=== PATIENT | female | born 1965 | race Caucasian/White ===

== ENCOUNTER 2021-05-09 18:57 | Emergency (ER) | payer SELFPAY ==
[~2021-05-09] VITALS: Ht 165.1 cm; Wt 48.1 kg
--- NOTE | 2021-05-09 18:57 | NUR ---
PT BIBRA FROM HOME C/O R FLANK PAIN STARTED 1600H TODAY. 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 WILL CONTINUE TO MONITOR.
[2021-05-09] MEDS ORDERED: KETOROLAC TROMETHAMINE 15 MG/ML VIAL ONE ×2 (19:22→20:26)
[2021-05-09] MEDS: KETOROLAC TROMETHAMINE INJ 30 MG/ML VIAL IV ONE (19:32)
[2021-05-09] MEDS: IV NS 0.9% 500 ML BAG IV ONE (19:32)
--- NOTE | 2021-05-09 19:39 | NUR ---
LAB AT BEDSIDE
[2021-05-09 20:07] LABS: BASOPHILS % (AUTO) 0.4 % (0.0-2.0); EOSINOPHILS % (AUTO) 0.3 % (0.0-6.0); HEMATOCRIT 41 % (33-45); HEMOGLOBIN 13.6 g/dL (11.5-14.8); LYMPHOCYTES % (AUTO) 11.1 % (20.0-44.0); MEAN CORPUSCULAR HGB CONC 33 g/dl (31.0-36.0); MEAN CORPUSCULAR VOLUME 85 fL (82-100); MONOCYTES # (AUTO) 0.5 K/uL (0.1-1.30); MONOCYTES % (AUTO) 5.2 % (2.0-12.0); NEUTROPHILS # (AUTO) 7.4 K/uL (1.8-8.9); PLATELET COUNT (AUTO) 238 K/uL (150-450); RED BLOOD CELL COUNT(AUTO) 4.87 MIL/uL (4.0-5.2)
[2021-05-09 20:21] LABS: BILIRUBIN,DIRECT 0.1 mg/dL (0.0-0.2); BILIRUBIN,TOTAL 0.4 mg/dL (0.2-1.0); CALCIUM, SERUM 8.8 mg/dL (8.5-10.1); CREATININE 0.9 mg/dL (0.6-1.3); TOTAL PROTEIN, SERUM 6.9 g/dL (6.4-8.2)
--- NOTE | 2021-05-09 20:22 | NUR ---
URINE COLLECTED AND SENT TO LAB
[2021-05-09] MEDS ORDERED: ONDANSETRON HCL/PF 4 MG/2 ML VIAL ONE (20:26)
[2021-05-09 20:29] LABS: ALBUMIN 3.5 g/dL (3.4-5.0); POTASSIUM 3.9 mmol/L (3.5-5.1)
--- NOTE | 2021-05-09 20:35 | NUR ---
TORADOL 15MG IVP ZOFRAN 4 MG IVP VERBAL MD ORDER, ORDER CARRIED OUT
[2021-05-09 21:34] LABS: BILIRUBIN,URINE NEGATIVE (NEGATIVE); COLOR,URINE YELLOW (YELLOW); LEUKOCYTE ESTERASE ,URINE NEGATIVE (NEGATIVE); NITRITE, URINE NEGATIVE (NEGATIVE); PROTEIN,URINE NEGATIVE (NEGATIVE); UGLUCOSE NEGATIVE (NEGATIVE); UROBILINOGEN,URINE 0.2 EU/dL (0.2)
[2021-05-09 21:44] LABS: RBC,URINE 0-2 /HPF (0-2); WBC,URINE 0-2 /HPF (0-3)
[2021-05-09 21:45] LABS: BACTERIA,URINE Few /HPF (None Seen); CALCIUM OXALATE CRYSTALS,UR Few /HPF (None Seen); SQUAMOUS EPITHELIAL CELL,UR Few /HPF (None Seen)
[2021-05-09] MEDS ORDERED: NAPR-1192 PO (22:00)
[2021-05-09] MEDS ORDERED: ONDA4TAB5 PO (22:00)
[2021-05-09] MEDS ORDERED: OXYC5TAB3 PO (22:00)
[2021-05-09 22:26] VITALS: BP 130/77
--- NOTE | 2021-05-09 22:26 | NUR ---
Patient discharged to home in stable condition. Written and verbal after care instructions given. Patient verbalizes understanding of instruction.
== END 2021-05-09 22:34 | disposition home or self-care (01) ==
LOC: ER 19:03
DX: N23 Unspecified renal colic (principal); R11.0 Nausea; F17.200 Nicotine dependence, unspecified, uncomplicated; Z79.899 Other long term (current) drug therapy
CPT/HCPCS: 36415; 74176; 80048; 80076; 81001; 83690; 84703; 85025; 87086; 96361; 96374; 99284; J1885 ×2; J2405; J7040